=== PATIENT | female | born 1965 | race Caucasian/White ===

== ENCOUNTER → 2017-11-04 11:46 | Outpatient (CLI) | payer OTHER, SELFPAY ==
[2017-11-04 13:20] LABS: Alanine Aminotransferase 47 IU/L (9-52); Albumin Globulin Ratio 1.4 (1.0-2.8); Alkaline Phosphatase 56 U/L (38-126); Aspartate Aminotransferase 36 IU/L (14-36); BUN Creatinine Ratio 17.1 (6-22); Blood Urea Nitrogen 12 mg/dL (7-17); Calcium 9.7 mg/dL (8.4-10.2); Carbon Dioxide 31 mmol/L (22-32); Chloride 103 mmol/L (98-107); Estimated Glomerular Filt Rate > 60.0 mL/min (>60); Globulin 2.8 g/dL (1.7-4.1); Glucose 85 mg/dL (70-100); HEMOLYSIS < 15 (0-50); Potassium 4.4 mmol/L (3.4-5.1); Sodium 139 mmol/L (137-145); Total Protein 6.8 g/dL (6.3-8.2)
[2017-11-06 14:15] LABS: Lipoprofile NMR SEE SEPARATE REPORTS
== END ==
PROVIDERS: PCP Internal Medicine Rheumatology; Visit Provider Specialist
DX: R00.2 Palpitations (principal)
CPT/HCPCS: 36415; 80053; 83704

== ENCOUNTER → 2019-01-20 10:02 | Outpatient (CLI) | payer OTHER, SELFPAY ==
[2019-01-20 10:59] LABS: Alanine Aminotransferase 56 IU/L (9-52); Albumin 4.2 g/dL (3.5-5.0); Albumin Globulin Ratio 1.6 (1.0-2.8); Alkaline Phosphatase 62 U/L (38-126); Aspartate Aminotransferase 55 IU/L (14-36); Bilirubin Total 1.3 mg/dL (0.2-1.3); Blood Urea Nitrogen 14 mg/dL (7-17); Calcium 9.7 mg/dL (8.4-10.2); Carbon Dioxide 27 mmol/L (22-32); Chloride 103 mmol/L (98-107); Estimated Glomerular Filt Rate > 60.0 mL/min (>60); Globulin 2.7 g/dL (1.7-4.1); Glucose 84 mg/dL (70-100); HEMOLYSIS < 15 (0-50); Sodium 137 mmol/L (137-145); Total Protein 6.9 g/dL (6.3-8.2)
[2019-01-22 11:15] LABS: Lipoprofile NMR SEE SEPERATE REPORT
== END ==
PROVIDERS: PCP Family Medicine; Visit Provider Specialist
DX: E78.2 Mixed hyperlipidemia (principal)
CPT/HCPCS: 36415; 80053; 83704

== ENCOUNTER → 2019-02-03 08:09 | Outpatient (CLI) | payer OTHER, SELFPAY ==
--- NOTE | 2019-02-03 | DI.ECHO.S_ITS ---
[facility] +---------+ : : [address] : [address] : : : : [id number] : : : : Phone: [phone]+ Echocardiogram Report + + :Name: NICK KAUR Study Date: 02/03/2019 Height: 65 in : :[facility] Exam Location: [facility] Weight: 184 lb : : Gender: Female BSA: 1.9 m2 : :: 1965 Age: 53 yrs BP: 126/83 mmHg: :Reason For Study: CAD : :Ordering Physician: Wiley : :Alec Performed By: Margaret Page : :Referring: UNSPECIFIED : + + Interpretation Summary Left ventricular systolic function is normal without focal wall motion abnormalities with the ejection fraction visually estimated to be 55-60% but appears slightly less dynamic compared to the previous study. The left ventricle is borderline dilated but is likely unchanged compared to the previous study. Diastolic function could not be accurately assessed due to contradictory data but is likely unchanged compared to the previous study. The right ventricle is at the upper limits of normal in size and systolic function is mildly reduced, and appears slightly larger and less dynamic compared to the previous study. Pulmonary artery pressures cannot be estimated because of the lack of a measurable TR jet velocity but the IVC suggests a CVP of around 3 mmHg. Both atria are severely dilated and both atria have significantly increased in size since the prior echo exam. There is mild mitral regurgitation that is unchanged compared to the previous study. There is no other significant valvular heart disease. The patient was in sinus bradycardia between 40-56 bpm during the exam which is slower compared to the previous study. Procedure: A two-dimensional transthoracic echocardiogram with color flow and Doppler was performed. The study quality was technically adequate. Comparison is made with the echocardiogram of 10/31/2016. The patient was in sinus bradycardia with heart rates between 40-56 bpm during the exam. This is slower compared to the previous study. Left Ventricle: The left ventricle is borderline dilated. This is unchanged compared to the previous study. There is normal left ventricular wall thickness. Left ventricular systolic function is normal without focal wall motion abnormalities. The ejection fraction is estimated to be 55-60%. This is slightly less dynamic compared to the previous study. Diastolic function could not be accurately assessed due to contradictory data. This is unchanged compared to the previous study. Right Ventricle: The right ventricle is not well visualized. The right ventricle is at the upper limits of normal in size. Right ventricular systolic function is mildly reduced. This is slightly larger and less dynamic compared to the previous study. Atria: Both atria are severely dilated. Both atria have significantly increased in size since the prior echo exam. There is no Doppler evidence for an interatrial shunt. Mitral Valve: There is mild mitral annular calcification. The mitral valve leaflets appear mildly thickened, but open well. The mitral valve leaflets are slightly calcified. There is mild mitral regurgitation. This is unchanged compared to the previous study. Aortic Valve: The aortic valve is trileaflet. The aortic valve is slightly calcified. The aortic valve opens well. There is trace aortic regurgitation. Tricuspid Valve: The tricuspid valve is normal in structure and function. There is a trace or physiologic amount of tricuspid regurgitation. Pulmonary artery pressures cannot be estimated because of the lack of a measurable TR jet velocity but the IVC suggests a CVP of around 3 mmHg. Pulmonic Valve: The pulmonic valve is not well visualized. There is trace pulmonic regurgitation. There is no other significant valvular heart disease. Great Vessels: The aortic root is normal size. The ascending aorta is normal in size. The pulmonary artery is normal size. The IVC is of normal diameter and collapses greater than 50% with a sniff. This suggests a low right atrial pressure of 3 mm Hg. Pericardium/ Pleura There is no pericardial effusion. There is no pleural effusion. MMode/2D Measurements & Calculations LVIDd: 5.3 cm LVOT diam: 2.0 cm LVIDs: 2.9 cm Ao root diam: 3.2 cm FS: 44.4 % asc Aorta Diam: 3.0 cm EPSS: 0.37 cm IVSd: 0.64 cm LVPWd: 0.87 cm LV song. diameter/BSA (cm/m^2): 2.8 LV sys. diameter/BSA (cm/m^2): 1.5 LA A2 area: 23.3 cm2 RA long axis: 5.5 cm LA A4 area: 26.0 cm2 RA area: 23.4 cm2 LA length (vol): 5.6 cm RA vol: 84.6 ml LA vol: 91.8 ml RA : 44.3 ml/m2 LA vol index: 48.1 ml/m2 IVC diam: 1.9 cm TAPSE: 1.1 cm Doppler Measurements & Calculations Ao V2 max: 175.1 cm/sec LVOT Max Neto: 89.9 cm/sec Ao V2 mean: 120.4 cm/sec LV V1 max P.2 mmHg Ao max P.3 mmHg LV V1 VTI: 20.5 cm Ao mean P.4 mmHg ISABEL(I,D): 1.7 cm2 Ao V2 VTI: 38.7 cm ISABEL(V,D): 1.6 cm2 sev ratio: 0.53 ISABEL indexed to BSA (cm^2/m^2): 0.89 MV E max neto: 86.2 cm/sec PA V2 max: 61.4 cm/sec MV A max neto: 42.9 cm/sec PA V2 mean: 41.2 cm/sec MV E/A: 2.0 PA mean P.76 mmHg Med Peak E' Neto: 4.9 cm/sec PA Accel Time: 0.10 sec E/E' med: 17.6 Lat Peak E' Neto: 10.8 cm/sec E/E' lat: 8.0 E/e' average: 12.8 MV dec time: 0.16 sec MV P1/2t: 48.2 msec MV P1/2t max neto: 86.3 cm/sec SV(LVOT): 65.9 ml MVA(P1/2t): 4.6 cm2 Reading Physician:BETHEL
== END ==
PROVIDERS: Family Provider Family Medicine; PCP Family Medicine; Visit Provider Physician Assistant Medical
DX: I34.0 Nonrheumatic mitral (valve) insufficiency (principal); I25.10 Atherosclerotic heart disease of native coronary artery without angina pectoris
CPT/HCPCS: 93306

== ENCOUNTER → 2019-08-18 10:44 | Outpatient (CLI) | payer OTHER, SELFPAY ==
[2019-08-18 13:04] LABS: Alanine Aminotransferase 32 IU/L (<35); Albumin 4.1 g/dL (3.5-5.0); Albumin Globulin Ratio 1.4 (1.0-2.8); Alkaline Phosphatase 56 U/L (38-126); Aspartate Aminotransferase 37 IU/L (14-36); Bilirubin Total 0.6 mg/dL (0.2-1.3); Blood Urea Nitrogen 13 mg/dL (7-17); Calcium 9.3 mg/dL (8.4-10.2); Carbon Dioxide 28 mmol/L (22-32); Chloride 106 mmol/L (98-107); Estimated Glomerular Filt Rate > 60.0 mL/min (>60); Globulin 2.9 g/dL (1.7-4.1); Glucose 78 mg/dL (70-100); HEMOLYSIS < 15 (0-50); Potassium 4.4 mmol/L (3.4-5.1); Sodium 141 mmol/L (137-145)
[2019-08-20 08:19] LABS: Cholesterol, Total 182 mg/dL (100-199); HDL-Cholesterol 65 mg/dL (>39); HDL-Particle (Total) 37.2 umol/L (>=30.5); Historical Reading Comment: (.); LDL Particle 1040 nmol/L (<1000); LDL Size 21.2 nm (>20.5); LDL-Cholsterol 104 mg/dL (0-99); LP-IR Score 29 (<=45); Small LDL- Particle 345 nmol/L (<=527); Triglycerides 64 mg/dL (0-149)
== END ==
PROVIDERS: Family Provider Family Medicine; PCP Family Medicine; Referring Provider Specialist; Visit Provider Specialist
DX: R94.5 Abnormal results of liver function studies (principal); E78.2 Mixed hyperlipidemia
CPT/HCPCS: 36415; 80053; 80061; 83704

== ENCOUNTER → 2020-04-19 11:24 | Outpatient (CLI) | payer OTHER, SELFPAY ==
[2020-04-19 13:28] LABS: Alanine Aminotransferase 24 IU/L (<35); Albumin 3.9 g/dL (3.5-5.0); Albumin Globulin Ratio 1.5 (1.0-2.8); Alkaline Phosphatase 64 U/L (38-126); Aspartate Aminotransferase 32 IU/L (14-36); BUN Creatinine Ratio 24.7 (6-22); Bilirubin Total 0.8 mg/dL (0.2-1.3); Blood Urea Nitrogen 18 mg/dL (7-17); Calcium 9.3 mg/dL (8.4-10.2); Carbon Dioxide 29 mmol/L (22-32); Chloride 107 mmol/L (98-107); Estimated Glomerular Filt Rate > 60.0 mL/min (>60); Globulin 2.6 g/dL (1.7-4.1); Glucose 79 mg/dL (70-100); HEMOLYSIS < 15 (0-50); Sodium 139 mmol/L (137-145); Total Protein 6.5 g/dL (6.3-8.2)
[2020-04-25 15:32] LABS: LDL Particle 1817
[2020-04-25 15:33] LABS: HDL-Cholesterol 25.6; LDL-Cholsterol 140
[2020-04-25 15:34] LABS: Cholesterol, Total 207; Triglycerides 62
[2020-04-25 15:35] LABS: HDL-Particle (Total) 25.6; Small LDL- Particle 592
== END ==
PROVIDERS: Family Provider Family Medicine; PCP Family Medicine; Referring Provider Specialist; Visit Provider Specialist
DX: E78.2 Mixed hyperlipidemia (principal)
CPT/HCPCS: 36415; 80053; 80061; 83704

== ENCOUNTER → 2020-05-12 17:40 | Outpatient (CLI) | payer OTHER, SELFPAY | PROVIDERS: Family Provider Family Medicine; PCP Family Medicine; Referring Provider Family Medicine; Visit Provider Family Medicine | DX: M54.2 Cervicalgia (principal); Z53.20 Procedure and treatment not carried out because of patient's decision for unspecified reasons ==

== ENCOUNTER → 2020-05-25 12:45 | Outpatient (CLI) | payer OTHER, SELFPAY ==
--- NOTE | 2020-05-25 | DI.MRI.S_ITS ---
PROCEDURE: MR LUMBAR SPINE WO CON INDICATIONS: lumbar Nerve root and plexus disorder TECHNIQUE: Noncontrast sagittal T1 spin echo and T2 fast echo, sagittal STIR, axial T1 and T2 fast spin echo through the lumbar spine. In cases with scoliosis, additional coronal T2 fast spin echo may be performed. COMPARISON: None. FINDINGS: Image quality: Excellent. Alignment and Curvature: There is normal bony alignment. Bone Marrow: Increased T2 signal and decreased T1 signal noted in the right ala of the sacrum compatible with nondisplaced fracture. Mild reactive endplate changes noted adjacent to the L3-L4 disc. No acute vertebral body compression fractures. Spinal Cord: Conus medullaris terminates at the L1 level. Visualized cord demonstrates normal signal and size. Paraspinous Soft Tissues: No paravertebral masses. T12-L1: Loss of disc signal. No central stenosis. No neural foraminal narrowing. No neural compression. L1-L2: Loss of disc signal. Mild, diffuse disc bulge. Mild narrowing of the central canal. No neural foraminal narrowing. No neural compression. L2-L3: Normal appearance. L3-L4: Loss of disc signal and height. Moderate, diffuse disc bulge. Mild bilateral facet hypertrophy. Mild to moderate narrowing of the central canal. Moderate right and moderate to severe left neural foraminal narrowing with slight compression of the exiting left L3 nerve root. L4-L5: Loss of disc signal. Mild, diffuse disc bulge. [id number] bilateral facet hypertrophy. Mild ligamentum flavum hypertrophy. Mild to moderate narrowing of the central canal. Mild to moderate bilateral neural foraminal narrowing. No neural compression. L5-S1: Disc has a normal appearance. Mild to moderate bilateral facet hypertrophy. No central stenosis. No neural foraminal narrowing. No neural compression. IMPRESSION: 1. Right sacral fracture. 2. Multilevel degenerative disc disease. 3. Multilevel facet arthropathy. 4. No severe central canal narrowing. 5. Moderate to severe left L3-L4 neural foraminal narrowing with slight compression of the exiting left L3 nerve root. Please correlate with clinical data. Dictated by: Ruth Gallegos MD, PhD on 05/25/2020 at 17:07 Approved by: Ruth Gallegos MD, PhD on 05/25/2020 at 17:13
--- NOTE | 2020-05-25 | DI.MRI.S_ITS ---
PROCEDURE: MR CERVICAL SPINE WO CON INDICATIONS: Cervicalgia Nerve root and plexus disorder TECHNIQUE: Noncontrast sagittal T1 spin echo and T2 fast spin echo, sagittal STIR, foraminal oblique sagittal T2 fast spin echo, and axial gradient echo or T2 fast spin echo through the cervical spine. COMPARISON: None. FINDINGS: Image quality: Excellent. Alignment and Curvature: There is trace retrolisthesis of C5 on C6, C6 on C7. Bone Marrow: Marrow demonstrates normal overall signal. Spinal Cord: Visualized spinal cord has normal size and signal. No cerebellar tonsillar herniation. Paraspinous Soft Tissues: No paravertebral masses. Prevertebral soft tissues are normal in thickness. Discs: [id number] desiccation is present throughout the cervical spine. C2-C3: No disc bulge, spinal stenosis or foraminal narrowing. C3-C4: Minimal disc bulge with mild left and minimal right foraminal narrowing and uncovertebral hypertrophy. C4-C5: Mild disc bulge with mild spinal stenosis. Minimal to mild bilateral foraminal narrowing with uncovertebral hypertrophy. C5-C6: Mild disc bulge with asymmetric left posterior lateral protrusion causing compromise of the left lateral recess. Moderate spinal stenosis. Moderate bilateral foraminal narrowing with uncovertebral hypertrophy. C6-C7: Mild disc bulge with moderate spinal stenosis. Moderate bilateral foraminal narrowing, left greater than right with uncovertebral hypertrophy. C7-T1: No disc bulge, spinal stenosis or foraminal narrowing. IMPRESSION: 1. Multilevel disc bulges. 2. Multilevel spinal stenosis predominantly secondary to disc bulge and most notable at C5-6 and C6-7. 3. Multilevel foraminal narrowing secondary to uncovertebral arthropathy as above most notable at C5-6 and C6-7. Dictated by: Brandie Corbin M.D. on 05/25/2020 at 16:56 Approved by: Brandie Corbin M.D. on 05/25/2020 at 17:00
== END ==
PROVIDERS: Family Provider Family Medicine; PCP Family Medicine; Referring Provider Family Medicine; Visit Provider Family Medicine
DX: M48.02 Spinal stenosis, cervical region (principal); M50.221 Other cervical disc displacement at C4-C5 level
CPT/HCPCS: 72141; 72148

== ENCOUNTER → 2020-08-03 13:55 | Outpatient (CLI) | payer OTHER, SELFPAY | PROVIDERS: Family Provider Family Medicine; PCP Family Medicine; Referring Provider Physical Medicine & Rehabilitation; Visit Provider Physical Medicine & Rehabilitation | DX: M84.48XA Pathological fracture, other site, initial encounter for fracture (principal) | CPT/HCPCS: 77080 ==

== ENCOUNTER → 2020-08-30 11:13 | Outpatient (CLI) | payer OTHER, SELFPAY ==
[2020-08-30 12:24] LABS: Alanine Aminotransferase 29 IU/L (<35); Albumin 4.1 g/dL (3.5-5.0); Albumin Globulin Ratio 1.4 (1.0-2.8); Alkaline Phosphatase 62 U/L (38-126); Aspartate Aminotransferase 37 IU/L (14-36); BUN Creatinine Ratio 20.9 (6-22); Bilirubin Total 0.8 mg/dL (0.2-1.3); Blood Urea Nitrogen 14 mg/dL (7-17); Calcium 9.5 mg/dL (8.4-10.2); Carbon Dioxide 30 mmol/L (22-32); Chloride 106 mmol/L (98-107); Estimated Glomerular Filt Rate > 60.0 mL/min (>60); Glucose 93 mg/dL (70-100); HEMOLYSIS 36 (0-50); Potassium 4.7 mmol/L (3.4-5.1); Sodium 141 mmol/L (137-145); Total Protein 7.1 g/dL (6.3-8.2)
== END ==
PROVIDERS: Family Provider Family Medicine; PCP Family Medicine; Referring Provider Specialist; Visit Provider Specialist
DX: E78.2 Mixed hyperlipidemia (principal)
CPT/HCPCS: 36415; 80053

== ENCOUNTER → 2020-09-06 12:15 | Outpatient (CLI) | payer OTHER, SELFPAY ==
--- NOTE | 2020-09-06 | DI.US.S_ITS ---
PROCEDURE: US CAROTID DOPPLER BI INDICATIONS: Occlusion and stenosis of unspecified carotid dominick TECHNIQUE: Color and pulse Doppler interrogation was performed of both carotid systems, with image documentation and velocity measurements. COMPARISON: None. FINDINGS: Stenosis calculations are based on SRU (Society of Radiologists in Ultrasound) criteria. Right side: Brachial blood pressure: 102/60 mm Hg. Common carotid artery peak systolic velocity: 74 cm/sec. Internal carotid artery peak systolic velocity: 138 cm/sec. Internal carotid artery end diastolic velocity: 57 cm/sec. External carotid artery peak systolic velocity: 113 cm/sec. ICA/CCA peak systolic ratio: 1.9 . Nguyen scale imaging description: Focal calcified stenosis of the mid common carotid, potentially as much as 50%. Non flow limiting internal carotid artery stenosis. Percent internal carotid artery stenosis: 50-69% by velocity criteria Vertebral artery: Flow direction is antegrade. Left side: Brachial blood pressure: 98/68 mm Hg. Common carotid artery peak systolic velocity: 74 cm/sec. Internal carotid artery peak systolic velocity: 177 cm/sec. Internal carotid artery end diastolic velocity: 52 cm/sec. External carotid artery peak systolic velocity: 112 cm/sec. ICA/CCA peak systolic ratio: 2.4. Nguyen scale imaging description: Scattered common carotid plaque. Calcified carotid bulb plaque. Moderate internal carotid artery plaque. External carotid artery stenosis. Percent internal carotid artery stenosis: 50-69% proximal internal carotid artery stenosis. Vertebral artery: Flow direction is antegrade. IMPRESSION: 1. Bilateral moderate, 50-69% internal carotid artery stenoses. Dictated by: Hugh Saavedra M.D. on 09/06/2020 at 15:03 Approved by: Hugh Saavedra M.D. on 09/06/2020 at 15:09
--- NOTE | 2020-09-06 | DI.US.S_ITS ---
PROCEDURE: US ABD AORTA ANEURYSM SCREEN INDICATIONS: Occlusion and stenosis of unspecified carotid dominick TECHNIQUE: Real time scanning was performed of the aorta and iliac arteries, with image documentation. COMPARISON: None. FINDINGS: Aorta: Proximal aortic diameter measures 1.7 cm. Mid-aorta measures 1.8 cm. Distal aortic diameter is 1.5 cm. Iliac arteries: Right common iliac artery measures 0.7 cm. Left common iliac artery measures 0.8 cm. IMPRESSION: Negative screening abdominal aortic ultrasound for aneurysm. Dictated by: Hugh Saavedra M.D. on 09/06/2020 at 15:09 Approved by: Hugh Saavedra M.D. on 09/06/2020 at 15:10
== END ==
PROVIDERS: Family Provider Family Medicine; PCP Family Medicine; Referring Provider Physician Assistant Medical; Visit Provider Physician Assistant Medical
DX: I65.23 Occlusion and stenosis of bilateral carotid arteries (principal)
CPT/HCPCS: 76706; 93880

== ENCOUNTER → 2020-09-13 12:12 | Outpatient (CLI) | payer OTHER, SELFPAY ==
[2020-09-13 14:10] LABS: Alanine Aminotransferase 26 IU/L (<35); Albumin Globulin Ratio 1.4 (1.0-2.8); Alkaline Phosphatase 66 U/L (38-126); Aspartate Aminotransferase 32 IU/L (14-36); BUN Creatinine Ratio 18.3 (6-22); Bilirubin Total 0.9 mg/dL (0.2-1.3); Blood Urea Nitrogen 13 mg/dL (7-17); Calcium 9.7 mg/dL (8.4-10.2); Carbon Dioxide 29 mmol/L (22-32); Chloride 102 mmol/L (98-107); Estimated Glomerular Filt Rate > 60.0 mL/min (>60); Globulin 2.8 g/dL (1.7-4.1); Glucose 77 mg/dL (70-100); HEMOLYSIS < 15 (0-50); Sodium 137 mmol/L (137-145); Total Protein 6.8 g/dL (6.3-8.2)
[2020-09-15 08:47] LABS: Cholesterol, Total 182 mg/dL (100-199); HDL-Cholesterol 67 mg/dL (>39); HDL-Particle (Total) 36.1 umol/L (>=30.5); LDL Particle 1301 nmol/L (<1000); LDL Size 20.8 nm (>20.5); LDL-Cholsterol 103 mg/dL (0-99); LP-IR Score <25 (<=45); Small LDL- Particle 632 nmol/L (<=527); Triglycerides 66 mg/dL (0-149)
== END ==
PROVIDERS: Family Provider Family Medicine; PCP Family Medicine; Referring Provider Specialist; Visit Provider Specialist
DX: E78.00 Pure hypercholesterolemia, unspecified (principal); R94.5 Abnormal results of liver function studies
CPT/HCPCS: 36415; 80053; 80061; 83704

== ENCOUNTER → 2020-10-20 10:36 | Outpatient (CLI) | payer OTHER, SELFPAY ==
--- NOTE | 2020-10-20 | DI.MG.S_ITS ---
BILATERAL DIGITAL SCREENING MAMMOGRAM 3D/2D WITH CAD: 10/20/2020 CLINICAL: Routine screening. Comparison is made to exam dated: 08/10/2015 mammogram - [facility]. There are scattered fibroglandular elements in both breasts. Current study was also evaluated with a Computer Aided Detection (CAD) system. No significant masses, calcifications, or other findings are seen in either breast. There has been no significant interval change. IMPRESSION: NEGATIVE There is no mammographic evidence of malignancy. A 1 year screening mammogram is recommended. This exam was interpreted at Station ID: [id number]. NOTE: For mammograms, a report in lay terms will be sent to the patient. Approximately 15% of breast malignancies will not be visualized mammographically. In the management of a palpable breast mass, a negative mammogram must not discourage biopsy of a clinically suspicious lesion. Electronically Signed By: Chris Mcmahon M.D., jr/malik:10/20/2020 11:00:54 letter sent: Normal Exam ACR BI-RADS Category 1: Negative [id number]
== END ==
PROVIDERS: Family Provider Family Medicine; PCP Family Medicine; Referring Provider Family Medicine; Visit Provider Family Medicine
DX: Z12.31 Encounter for screening mammogram for malignant neoplasm of breast (principal)
CPT/HCPCS: 77063; 77067

== ENCOUNTER → 2021-01-05 10:57 | Outpatient (CLI) | payer OTHER, SELFPAY ==
[2021-01-05 12:47] LABS: Alanine Aminotransferase 25 IU/L (<35); Albumin 4.1 g/dL (3.5-5.0); Albumin Globulin Ratio 1.6 (1.0-2.8); Alkaline Phosphatase 61 U/L (38-126); Aspartate Aminotransferase 30 IU/L (14-36); Bilirubin Total 0.8 mg/dL (0.2-1.3); Blood Urea Nitrogen 14 mg/dL (7-17); Calcium 9.6 mg/dL (8.4-10.2); Carbon Dioxide 31 mmol/L (22-32); Chloride 106 mmol/L (98-107); Estimated Glomerular Filt Rate > 60.0 mL/min (>60); Globulin 2.5 g/dL (1.7-4.1); Glucose 82 mg/dL (70-100); HEMOLYSIS < 15 (0-50); Potassium 4.3 mmol/L (3.4-5.1); Sodium 141 mmol/L (137-145); Total Protein 6.6 g/dL (6.3-8.2)
[2021-01-07 15:05] LABS: Cholesterol, Total 246 mg/dL (100-199); HDL-Cholesterol 69 mg/dL (>39); HDL-Particle (Total) 33.4 umol/L (>=30.5); LDL Particle 1855 nmol/L (<1000); LDL Size 21.2 nm (>20.5); LDL-Cholsterol 168 mg/dL (0-99); LP-IR Score <25 (<=45); Small LDL- Particle 509 nmol/L (<=527); Triglycerides 54 mg/dL (0-149)
== END ==
PROVIDERS: Family Provider Family Medicine; PCP Family Medicine; Referring Provider Specialist; Visit Provider Specialist
DX: E78.00 Pure hypercholesterolemia, unspecified (principal); R94.5 Abnormal results of liver function studies
CPT/HCPCS: 36415; 80053; 80061; 83704

== ENCOUNTER → 2021-08-11 10:51 | Outpatient (CLI) | payer OTHER, SELFPAY ==
--- NOTE | 2021-08-11 10:54 | DI.US.S_ITS ---
PROCEDURE: US CAROTID DOPPLER BI INDICATIONS: Occlusion -stenosis of bilateral carotid artery TECHNIQUE: Color and pulse Doppler interrogation was performed of both carotid systems, with image documentation and velocity measurements. COMPARISON: [facility], , CAROTID DOPPLER BI, 09/06/2020, 11:30. FINDINGS: Stenosis calculations are based on SRU (Society of Radiologists in Ultrasound) criteria. Right side: Brachial blood pressure: 144/96 mm Hg. Common carotid artery peak systolic velocity: 114 cm/sec. Internal carotid artery peak systolic velocity: 127 cm/sec. Internal carotid artery end diastolic velocity: 48 cm/sec. External carotid artery peak systolic velocity: 123 cm/sec. ICA/CCA peak systolic ratio: 1.1 . Nguyen scale imaging description: Calcified plaque Percent internal carotid artery stenosis: 50-69% Vertebral artery: Flow direction is antegrade. Left side: Brachial blood pressure: 134/86 mm Hg. Common carotid artery peak systolic velocity: 100 cm/sec. Internal carotid artery peak systolic velocity: 197 cm/sec. Internal carotid artery end diastolic velocity: 55 cm/sec. External carotid artery peak systolic velocity: 339 cm/sec. ICA/CCA peak systolic ratio: 1.97 . Nguyen scale imaging description: Calcified plaque Percent internal carotid artery stenosis: 50-69%. Vertebral artery: Flow direction is antegrade. IMPRESSION: Moderate 50-69% bilateral internal carotid artery stenosis. Dictated by: Ruth Gallegos MD, PhD on 08/11/2021 at 14:32 Approved by: Ruth Gallegos MD, PhD on 08/11/2021 at 14:37
== END ==
PROVIDERS: Family Provider Family Medicine; PCP Family Medicine; Referring Provider Specialist; Visit Provider Physician Assistant Medical
DX: I65.23 Occlusion and stenosis of bilateral carotid arteries (principal)
CPT/HCPCS: 93880

== ENCOUNTER → 2021-11-21 08:46 | Outpatient (CLI) | payer OTHER, SELFPAY ==
[2021-11-21 09:45] LABS: Alanine Aminotransferase 27 IU/L (<35); Albumin 4.1 g/dL (3.5-5.0); Albumin Globulin Ratio 1.5 (1.0-2.8); Alkaline Phosphatase 65 U/L (38-126); Aspartate Aminotransferase 29 IU/L (14-36); Bilirubin Total 0.7 mg/dL (0.2-1.3); Blood Urea Nitrogen 14 mg/dL (7-17); Calcium 8.7 mg/dL (8.4-10.2); Carbon Dioxide 26 mmol/L (22-32); Chloride 108 mmol/L (98-107); Estimated Glomerular Filt Rate > 60 mL/min (>60); Globulin 2.8 g/dL (1.7-4.1); Glucose 97 mg/dL (70-100); HEMOLYSIS < 15 (0-50); Potassium 3.7 mmol/L (3.4-5.1); Sodium 139 mmol/L (137-145); Total Protein 6.9 g/dL (6.3-8.2)
[2021-11-24 09:15] LABS: Cholesterol, Total 103 mg/dL (100-199); HDL-Cholesterol 59 mg/dL (>39); HDL-Particle (Total) 38.9 umol/L (>=30.5); LDL Particle 419 nmol/L (<1000); LDL Size 19.7 nm (>20.5); LDL-Cholsterol 32 mg/dL (0-99); LP-IR Score 26 (<=45); Small LDL- Particle 276 nmol/L (<=527); Triglycerides 51 mg/dL (0-149)
== END ==
PROVIDERS: Family Provider Family Medicine; PCP Family Medicine; Referring Provider Specialist; Visit Provider Specialist
DX: E78.00 Pure hypercholesterolemia, unspecified (principal); R94.5 Abnormal results of liver function studies
CPT/HCPCS: 36415; 80053; 80061; 83704

== ENCOUNTER → 2022-09-27 13:00 | Outpatient (CLI) | payer OTHER, SELFPAY ==
[2022-09-27 13:45] LABS: Alanine Aminotransferase 25 IU/L (<35); Albumin 4.1 g/dL (3.5-5.0); Albumin Globulin Ratio 1.5 (1.0-2.8); Alkaline Phosphatase 74 U/L (38-126); Aspartate Aminotransferase 29 IU/L (14-36); BUN Creatinine Ratio 12.5 (6-22); Bilirubin Total 0.6 mg/dL (0.2-1.3); Blood Urea Nitrogen 9 mg/dL (7-17); Calcium 9.1 mg/dL (8.4-10.2); Carbon Dioxide 30 mmol/L (22-32); Chloride 105 mmol/L (98-107); Estimated Glomerular Filt Rate > 60 mL/min (>60); Globulin 2.7 g/dL (1.7-4.1); Glucose 91 mg/dL (70-100); HEMOLYSIS < 15 (0-50); Potassium 4.1 mmol/L (3.4-5.1); Sodium 140 mmol/L (137-145); Total Protein 6.8 g/dL (6.3-8.2)
[2022-10-01 11:52] LABS: Cholesterol, Total 170 mg/dL (100-199); HDL-Cholesterol 69 mg/dL (>39); HDL-Particle (Total) 39.1 umol/L (>=30.5); LDL Particle 926 nmol/L (<1000); LDL Size 21.8 nm (>20.5); LDL-Cholsterol 88 mg/dL (0-99); LP-IR Score <25 (<=45); Small LDL- Particle 154 nmol/L (<=527); Triglycerides 65 mg/dL (0-149)
== END ==
PROVIDERS: Family Provider Family Medicine; PCP Family Medicine; Referring Provider Specialist; Visit Provider Specialist
DX: E78.2 Mixed hyperlipidemia (principal)
CPT/HCPCS: 36415; 80053; 80061; 83704

== ENCOUNTER 2022-10-03 06:09 | Emergency (ER) | payer OTHER, SELFPAY ==
--- NOTE | 2022-10-03 06:12 | ED.GENADULT ---
HPI - General Adult <Cecilio Null DO - Last Filed: 10/04/22 01:35> General Chief complaint: Back Pain/Injury Stated complaint: abd pain lt side and back pain Time Seen by Provider: 10/03/22 06:12 History of Present Illness HPI narrative: 57-year-old female with a history of kidney stone (20 years ago) presents with her in the chief complaint of a sudden onset left flank pain with radiation into her groin that came on suddenly and woke her from sleep last night. She states that when it was intense the pain was quite severe and she was unable to find a position of comfort. There was no obvious provocation or palliation but she does admit to radiation to her back. Since then the intense pain has improved but she has a lingering left lower quadrant discomfort that persists. She states that in many ways this feels like prior kidney stones. She denies any dizziness, weakness or lightheadedness. She has no fever or chills and though she has been nauseated she denies any vomiting. She has had relatively frequent loose stools for the past few weeks but denies international travel, bad food, and use of antibiotics or exposure to other ill persons. Related Data Previous Rx's Medication Instructions Recorded hydrocodone 5 mg-acetaminophen 325 1 tab PO Q6H PRN pain #10 tabs 10/03/22 mg tablet ondansetron 4 mg disintegrating 4 mg PO Q6H PRN nausea and 10/03/22 tablet vomiting #10 tabs tamsulosin 0.4 mg capsule (Flomax) 0.4 mg PO DAILY #14 caps 10/03/22 Allergies Allergy/AdvReac Type Severity Reaction Status Date / Time Sulfa (Sulfonamide Allergy Hives Verified 10/03/22 06:19 Antibiotics) Review of Systems <Cecilio Null DO - Last Filed: 10/04/22 01:35> Review of Systems Narrative: GENERAL: Denies chills, fatigue, malaise, fever, sweats. HEENT: Denies sinus pain, ear pain, sore throat, difficulty swallowing, dizziness. RESPIRATORY: Denies dyspnea, cough, wheezing, hemoptysis, sputum. CARDIOVASCULAR: Denies chest pain, palpitations, orthopnea, edema, GASTROINTESTINAL: See HPI : See HPI MUSCULOSKELETAL: denies weakness, joint pain, or bony pain SKIN: Denies rash, skin lesions, or other NEUROLOGIC: Denies weakness, headache, numbness, change in speech, confusion, seizures, incoordination. PSYCHIATRIC: No concerning psychosocial issues. 12 point review of systems is negative except for those stated above Patient History <Cecilio Null DO - Last Filed: 10/04/22 01:35> Social History Smoking Status: Never smoker Exam <Cecilio Null DO - Last Filed: 10/04/22 01:35> Narrative Exam Narrative: GENERAL: [57] year old patient appears stated age. Well-developed patient, in mild distress. HEAD: Atraumatic. Normocephalic. EYES: Pupils equal round and reactive. Extraocular motions intact. No scleral icterus. No injection or drainage. ENT: Nose without bleeding, purulent drainage. Throat without erythema, tonsillar hypertrophy or exudate. Airway patent. NECK: Trachea midline. Non tender CARDIOVASCULAR: Regular rate and rhythm without murmurs, gallops, or rubs. RESPIRATORY: Clear to auscultation. Breath sounds equal bilaterally. No wheezes, rales, or rhonchi. GASTROINTESTINAL: Abdomen soft, non-tender, nondistended. EXTREMITIES: No edema or joint tenderness. BACK: Nontender without deformity or crepitance. No flank tenderness. NEURO: AOx3. SKIN: No rash or erythema of visible areas Initial Vital Signs Initial Vital Signs: Vital Signs Temperature 97.9 F 10/03/22 06:19 Pulse Rate 73 10/03/22 06:19 Respiratory Rate 15 10/03/22 06:19 Blood Pressure 129/91 H 10/03/22 06:19 Pulse Oximetry 95 10/03/22 06:19 Oxygen Delivery Method Room Air 10/03/22 06:19 <Cleveland Robertson DO - Last Filed: 10/03/22 08:40> Initial Vital Signs Initial Vital Signs: Vital Signs Temperature 97.9 F 10/03/22 06:19 Pulse Rate 73 10/03/22 06:19 Respiratory Rate 15 10/03/22 06:19 Blood Pressure 129/91 H 10/03/22 06:19 Pulse Oximetry 95 10/03/22 06:19 Oxygen Delivery Method Room Air 10/03/22 06:19 Course <Cecilio Lima, DO - Last Filed: 10/04/22 01:35> Orders Ordered: Discontinued Medications Sodium Chloride (Normal Saline 0.9%) 1,000 mls @ 1,000 mls/hr IV BOLUS ONE Stop: 10/03/22 07:24 Last Infusion: 10/03/22 08:12 Dose: 0 mls/hr Documented By: Admin: 10/03/22 06:41 Dose: 1,000 mls/hr Documented By: SJ Ketorolac Tromethamine (Ketorolac 30 Mg/Ml Vial) 15 mg IV NOW ONE Stop: 10/03/22 06:26 Last Admin: 10/03/22 07:19 Dose: 15 mg Documented By: RB Vital Signs Vital signs: Vital Signs - 8 hr 10/03/22 06:19 Temperature 97.9 F Pulse Rate 73 Respiratory Rate 15 Blood Pressure 129/91 H Pulse Oximetry 95 Oxygen Delivery Method Room Air <Cleveland Robertson DO - Last Filed: 10/03/22 08:40> Orders Ordered: Discontinued Medications Sodium Chloride (Normal Saline 0.9%) 1,000 mls @ 1,000 mls/hr IV BOLUS ONE Stop: 10/03/22 07:24 Last Infusion: 10/03/22 08:12 Dose: 0 mls/hr Documented By: Admin: 10/03/22 06:41 Dose: 1,000 mls/hr Documented By: SJ Ketorolac Tromethamine (Ketorolac 30 Mg/Ml Vial) 15 mg IV NOW ONE Stop: 10/03/22 06:26 Last Admin: 10/03/22 07:19 Dose: 15 mg Documented By: RB Vital Signs Vital signs: Vital Signs - 8 hr 10/03/22 06:19 Temperature 97.9 F Pulse Rate 73 Respiratory Rate 15 Blood Pressure 129/91 H Pulse Oximetry 95 Oxygen Delivery Method Room Air Medical Decision Making <Cecilio Null DO - Last Filed: 10/04/22 01:35> Lab Data 10/03/22 06:35 10/03/22 06:35 Labs: Lab Results 10/03/22 10/03/22 Range/Units 06:35 06:35 WBC 8.9 (4.5-11.0) X10^3/uL RBC 4.35 (4.0-5.2) X10^6/uL Hgb 14.7 (12.0-16.0) g/dL Hct 43.6 (36-46) % MCV 100.2 H (80-100) fL MCH 33.7 (26-34) PG MCHC 33.7 (30-36) % RDW 13.0 (11.6-14.8) % Plt Count 206 (150-400) X10^3/uL Neut % (Auto) 54.2 (50-75) % Lymph % (Auto) 31.5 (25-40) % [place] % (Auto) 8.3 (3-14) % Eos % (Auto) 4.9 H (2-4) % Baso % (Auto) 1.1 (0-2) % Neut # (Auto) 4800 (7586-2671) /uL Lymph # (Auto) 2800 (8928-0803) /uL [place] # (Auto) 700 (0-900) /uL Eos # (Auto) 400 (0-450) /uL Baso # (Auto) 100 (0-100) /uL Sodium 138 (137-145) mmol/L Potassium 3.8 (3.4-5.1) mmol/L Chloride 106 (98-107) mmol/L Carbon Dioxide 23 (22-32) mmol/L BUN 16 (7-17) mg/dL Creatinine 0.67 (0.52-1.04) mg/dL Estimated GFR > 60 (>60) mL/min BUN/Creatinine Ratio 23.9 H (6-22) Glucose 107 H (70-100) mg/dL Calcium 8.8 (8.4-10.2) mg/dL Urine Dip Bedside Urine Glucose Negative Bedside Urine Bilirubin - Negative Bedside Urine Ketone - Negative Urine Specific [place] 1.01 Bedside Urine Occult Blood +++ Bedside Urine pH 7 Bedside Urine Protein - Negative Bedside Urine Urobilinogen - Negative Bedside Urine Nitrite - Negative Bedside Urine Leukocytes - Negative Esterase Point of care testing: Urine Dip Bedside Urine Glucose Negative Bedside Urine Bilirubin - Negative Bedside Urine Ketone - Negative Urine Specific [place] 1.01 Bedside Urine Occult Blood +++ Bedside Urine pH 7 Bedside Urine Protein - Negative Bedside Urine Urobilinogen - Negative Bedside Urine Nitrite - Negative Bedside Urine Leukocytes - Negative Esterase <Cleveland Robertson DO - Last Filed: 10/03/22 08:40> Lab Data Lab results reviewed: Yes I reviewed the patient's lab results. Labs: Lab Results 10/03/22 10/03/22 Range/Units 06:35 06:35 WBC 8.9 (4.5-11.0) X10^3/uL RBC 4.35 (4.0-5.2) X10^6/uL Hgb 14.7 (12.0-16.0) g/dL Hct 43.6 (36-46) % MCV 100.2 H (80-100) fL MCH 33.7 (26-34) PG MCHC 33.7 (30-36) % RDW 13.0 (11.6-14.8) % Plt Count 206 (150-400) X10^3/uL Neut % (Auto) 54.2 (50-75) % Lymph % (Auto) 31.5 (25-40) % [place] % (Auto) 8.3 (3-14) % Eos % (Auto) 4.9 H (2-4) % Baso % (Auto) 1.1 (0-2) % Neut # (Auto) 4800 (6472-8848) /uL Lymph # (Auto) 2800 (8980-0129) /uL [place] # (Auto) 700 (0-900) /uL Eos # (Auto) 400 (0-450) /uL Baso # (Auto) 100 (0-100) /uL Sodium 138 (137-145) mmol/L Potassium 3.8 (3.4-5.1) mmol/L Chloride 106 (98-107) mmol/L Carbon Dioxide 23 (22-32) mmol/L BUN 16 (7-17) mg/dL Creatinine 0.67 (0.52-1.04) mg/dL Estimated GFR > 60 (>60) mL/min BUN/Creatinine Ratio 23.9 H (6-22) Glucose 107 H (70-100) mg/dL Calcium 8.8 (8.4-10.2) mg/dL Urine Dip Bedside Urine Glucose Negative Bedside Urine Bilirubin - Negative Bedside Urine Ketone - Negative Urine Specific [place] 1.01 Bedside Urine Occult Blood +++ Bedside Urine pH 7 Bedside Urine Protein - Negative Bedside Urine Urobilinogen - Negative Bedside Urine Nitrite - Negative Bedside Urine Leukocytes - Negative Esterase Point of care testing: Urine Dip Bedside Urine Glucose Negative Bedside Urine Bilirubin - Negative Bedside Urine Ketone - Negative Urine Specific [place] 1.01 Bedside Urine Occult Blood +++ Bedside Urine pH 7 Bedside Urine Protein - Negative Bedside Urine Urobilinogen - Negative Bedside Urine Nitrite - Negative Bedside Urine Leukocytes - Negative Esterase Imaging Data CT scan - abdomen/pelvis: Radiologist's Impression: PROCEDURE:? CT KIDNEY URETER BLADDER (KUB) ? INDICATIONS:? Left flank pain, hx stones ? TECHNIQUE:? Axial sections were acquired from the lung bases to the pubic symphysis.? Coronal and sagittal reformats were performed.? For radiation dose reduction, the following was used: ?automated exposure control, adjustment of mA and/or kV according to patient size.? ? COMPARISON:? None. ? FINDINGS:? Image quality:? Excellent.? ? Lung bases:? Unremarkable.? ? Heart:? Sternotomy wires and mediastinal clips are present.? Coronary artery calcifications are noted. ? URINARY: Kidneys and ureters:? Multiple due 3 mm nonobstructing calculi are seen in the left kidney.? A 5 mm calculus is seen in the distal left ureter (500 Hounsfield units) with mild left hydroureter and mild hydronephrosis.? No significant right hydronephrosis or ureteral calculus.? No solid renal mass. ? Bladder:? Normal wall thickness. No stones. ? ? ? ABDOMEN: Liver:? Subcentimeter hypoattenuating lesion at the inferior right hepatic lobe is too small to characterize, but is most likely a cyst or hemangioma..? ? Gallbladder:? Unremarkable. Biliary ducts:? Unremarkable.? ? Pancreas:? Unremarkable.? ? Spleen:? Spleen is surgically absent.? Surgical clips are seen in the left upper quadrant..? ? Adrenal Glands:? Unremarkable.? ? ? Stomach and Bowel:? Multiple diverticula are seen in the colon without signs of acute diverticulitis.? Prominent stool is seen in the cecum.? Normal appendix.? No signs of bowel obstruction. Peritoneum:? No abnormal intraperitoneal fluid.? No free air.? ? Ventral Wall: ? No hernia.? Abdominal Nodes:? No enlarged retroperitoneal or mesenteric lymph nodes.? Vessels:? Aorta and inferior vena cava are normal in size.? Mild to moderate aortic atherosclerotic calcifications. ? PELVIS: Pelvic Organs:? Unremarkable.? ? Pelvic Nodes: Unremarkable. Miscellaneous: No inguinal hernias are seen. ? ? ? Bones:? Mild degenerative changes in the lumbar spine. ? IMPRESSION:? 1. Left distal ureteral 5 mm calculus just proximal to the ureterovesicular junction.? Mild left hydroureteronephrosis. 2. Multiple additional nonobstructing left renal calculi. 3. Colonic diverticulosis without signs of acute diverticulitis.? [facility] Narrative Medical decision making narrative: Dr Robertson: Received turned over. Review patient's history and physical exam. Urinalysis does not show any signs of an infection. Kidney functions unremarkable. CT scan does show left-sided ureteral stone which is consistent with her clinical presentation. I did discuss this with her and her family at bedside. We will treat symptoms and also start on Flomax. Patient was given return precautions and follow-up instructions. She expressed understanding and agreement with plan. Discharge Plan Departure Patient Disposition: Home Clinical Impression: Renal colic on left side Instructions: DI for Kidney Stones Prescriptions: New ondansetron 4 mg tablet,disintegrating 4 mg PO Q6H PRN (Reason: nausea and vomiting) Qty: 10 0RF hydrocodone-acetaminophen 5-325 mg tablet 1 tab PO Q6H PRN (Reason: pain) Qty: 10 0RF tamsulosin [Flomax] 0.4 mg capsule 0.4 mg PO DAILY Qty: 14 0RF Referrals: Lesly Washington DO [Primary Care Provider] - Stand Alone Forms: Patient Portal/API
[2022-10-03 06:19] VITALS: BP 129/91; PULSE 73; RESP 15; TEMP 36.6; O2SAT 95; BMI 29.9
[2022-10-03] MEDS: SODIUM CHLORIDE 0.9% 1,000 ML 1000 ML IV (06:41)
[2022-10-03 06:45] LABS: Add Manual Diff / Slide Review NO; Basophils Absolute Auto 100 /uL (0-100); Basophils Percent Auto 1.1 % (0-2); Eosinophils Absolute Auto 400 /uL (0-450); Eosinophils Percent Auto 4.9 % (2-4); Hematocrit 43.6 % (36-46); Hemoglobin 14.7 g/dL (12.0-16.0); Lymphocytes Absolute Auto 2800 /uL (1100-4500); Lymphocytes Percent Auto 31.5 % (25-40); Mean Corpuscular HGB Conc 33.7 % (30-36); Mean Corpuscular Hemoglobin 33.7 PG (26-34); Mean Corpuscular Volume 100.2 fL (80-100); Monocytes Absolute Auto 700 /uL (0-900); Monocytes Percent Auto 8.3 % (3-14); Neutrophils Absolute Auto 4800 /uL (1500-7000); Neutrophils Percent Auto 54.2 % (50-75); Platelet Count 206 X10^3/uL (150-400); Red Blood Cell Count 4.35 X10^6/uL (4.0-5.2); White Blood Cell Count 8.9 X10^3/uL (4.5-11.0)
--- NOTE | 2022-10-03 07:13 | DI.CT.S_ITS ---
PROCEDURE: CT KIDNEY URETER BLADDER (KUB) INDICATIONS: Left flank pain, hx stones TECHNIQUE: Axial sections were acquired from the lung bases to the pubic symphysis. Coronal and sagittal reformats were performed. For radiation dose reduction, the following was used: automated exposure control, adjustment of mA and/or kV according to patient size. COMPARISON: None. FINDINGS: Image quality: Excellent. Lung bases: Unremarkable. Heart: Sternotomy wires and mediastinal clips are present. Coronary artery calcifications are noted. URINARY: Kidneys and ureters: Multiple due 3 mm nonobstructing calculi are seen in the left kidney. A 5 mm calculus is seen in the distal left ureter (500 Hounsfield units) with mild left hydroureter and mild hydronephrosis. No significant right hydronephrosis or ureteral calculus. No solid renal mass. Bladder: Normal wall thickness. No stones. ABDOMEN: Liver: Subcentimeter hypoattenuating lesion at the inferior right hepatic lobe is too small to characterize, but is most likely a cyst or hemangioma.. Gallbladder: Unremarkable. Biliary ducts: Unremarkable. Pancreas: Unremarkable. Spleen: Spleen is surgically absent. Surgical clips are seen in the left upper quadrant.. Adrenal Glands: Unremarkable. Stomach and Bowel: Multiple diverticula are seen in the colon without signs of acute diverticulitis. Prominent stool is seen in the cecum. Normal appendix. No signs of bowel obstruction. Peritoneum: No abnormal intraperitoneal fluid. No free air. Ventral Wall: No hernia. Abdominal Nodes: No enlarged retroperitoneal or mesenteric lymph nodes. Vessels: Aorta and inferior vena cava are normal in size. Mild to moderate aortic atherosclerotic calcifications. PELVIS: Pelvic Organs: Unremarkable. Pelvic Nodes: Unremarkable. Miscellaneous: No inguinal hernias are seen. Bones: Mild degenerative changes in the lumbar spine. IMPRESSION: 1. Left distal ureteral 5 mm calculus just proximal to the ureterovesicular junction. Mild left hydroureteronephrosis. 2. Multiple additional nonobstructing left renal calculi. 3. Colonic diverticulosis without signs of acute diverticulitis. Approved by: Brian Chowdhury M.D. on 10/03/2022 at 8:15
[2022-10-03 07:19] LABS: BUN Creatinine Ratio 23.9 (6-22); Blood Urea Nitrogen 16 mg/dL (7-17); Calcium 8.8 mg/dL (8.4-10.2); Carbon Dioxide 23 mmol/L (22-32); Chloride 106 mmol/L (98-107); Estimated Glomerular Filt Rate > 60 mL/min (>60); Glucose 107 mg/dL (70-100); HEMOLYSIS 72 (0-50); Potassium 3.8 mmol/L (3.4-5.1); Sodium 138 mmol/L (137-145)
[2022-10-03] MEDS: KETOROLAC 30 MG/ML VIAL 15 MG IV (07:19)
[2022-10-03 08:45] VITALS: BP 129/69; PULSE 65; O2SAT 94
== END 2022-10-03 08:52 | disposition home or self-care (01) ==
PROVIDERS: Emergency Medicine; Emergency Provider Emergency Medicine; Family Provider Family Medicine; PCP Family Medicine
DX: N23 Unspecified renal colic (principal)
CPT/HCPCS: 36415; 74176; 80048; 81003; 85025; 96361; 96374; 99284; J1885

== ENCOUNTER → 2023-03-12 10:14 | Outpatient (CLI) | payer OTHER, SELFPAY ==
--- NOTE | 2023-03-12 | DI.US.S_ITS ---
PROCEDURE: US CAROTID DOPPLER BI INDICATIONS: CAROTID STENOSIS TECHNIQUE: Color and pulse Doppler interrogation was performed of both carotid systems, with image documentation and velocity measurements. COMPARISON: [facility], , US CAROTID DOPPLER BI, 08/11/2021, 11:01. FINDINGS: Stenosis calculations are based on SRU (Society of Radiologists in Ultrasound) criteria. Right side: Brachial blood pressure: 120/71 mm Hg. Common carotid artery peak systolic velocity: 59 cm/sec. Internal carotid artery peak systolic velocity: 74 cm/sec. Internal carotid artery end diastolic velocity: 29 cm/sec. External carotid artery peak systolic velocity: 101 cm/sec. ICA/CCA peak systolic ratio: 1.3 . Nguyen scale imaging description: Atheromatous plaque is present at the carotid bifurcation. Percent internal carotid artery stenosis: Less than 50% stenosis. Vertebral artery: Flow direction is antegrade. Left side: Brachial blood pressure: 114/73 mm Hg. Common carotid artery peak systolic velocity: 69 cm/sec. Internal carotid artery peak systolic velocity: 198 cm/sec. Internal carotid artery end diastolic velocity: 56 cm/sec. External carotid artery peak systolic velocity: 368 cm/sec. ICA/CCA peak systolic ratio: 2.9 . Nguyen scale imaging description: Atheromatous plaque and calcification is present at the carotid bifurcation. Percent internal carotid artery stenosis: 50-69% stenosis. Vertebral artery: Flow direction is antegrade. IMPRESSION: 1. Less than 50% stenosis of the right internal carotid artery. 2. 50-69% stenosis of the left internal carotid artery. 3. Markedly elevated velocities within the left external carotid artery suggesting hemodynamically significant stenosis. Dictated by: Jordyn Cyr M.D. on 03/12/2023 at 13:32 Approved by: Jordyn Cyr M.D. on 03/12/2023 at 13:33
[2023-03-12 12:56] LABS: Alanine Aminotransferase 24 IU/L (<35); Albumin 4.2 g/dL (3.5-5.0); Albumin Globulin Ratio 1.5 (1.0-2.8); Alkaline Phosphatase 71 U/L (38-126); Aspartate Aminotransferase 27 IU/L (14-36); BUN Creatinine Ratio 19.7 (6-22); Bilirubin Total 0.7 mg/dL (0.2-1.3); Blood Urea Nitrogen 15 mg/dL (7-17); Carbon Dioxide 27 mmol/L (22-32); Chloride 104 mmol/L (98-107); Estimated Glomerular Filt Rate > 60 mL/min (>60); Globulin 2.8 g/dL (1.7-4.1); Glucose 91 mg/dL (70-100); HEMOLYSIS < 15 (0-50); Magnesium 2.3 mg/dL (1.6-2.3); Potassium 4.6 mmol/L (3.4-5.1); Sodium 138 mmol/L (137-145)
[2023-03-15 03:33] LABS: Cholesterol, Total 180 mg/dL (100-199); HDL-Cholesterol 63 mg/dL (>39); HDL-Particle (Total) 39.6 umol/L (>=30.5); Historical Reading Comment: (.); LDL Particle 1315 nmol/L (<1000); LDL-Cholsterol 103 mg/dL (0-99); LP-IR Score 39 (<=45); Small LDL- Particle 621 nmol/L (<=527); Triglycerides 73 mg/dL (0-149)
== END ==
PROVIDERS: Family Provider Family Medicine; PCP Family Medicine; Referring Provider Specialist; Visit Provider Specialist
DX: I65.23 Occlusion and stenosis of bilateral carotid arteries (principal); R00.2 Palpitations; I49.3 Ventricular premature depolarization; E78.2 Mixed hyperlipidemia
CPT/HCPCS: 36415; 80053; 80061; 83704; 83735; 93880

== ENCOUNTER → 2023-11-12 07:37 | Outpatient (CLI) | payer OTHER, SELFPAY ==
[2023-11-12 09:15] LABS: Alanine Aminotransferase 25 IU/L (<35); Albumin 4.1 g/dL (3.5-5.0); Albumin Globulin Ratio 1.7 (1.0-2.8); Alkaline Phosphatase 77 U/L (38-126); Aspartate Aminotransferase 29 IU/L (14-36); BUN Creatinine Ratio 18.4 (6-22); Bilirubin Total 0.8 mg/dL (0.2-1.3); Blood Urea Nitrogen 14 mg/dL (7-17); Calcium 9.1 mg/dL (8.4-10.2); Carbon Dioxide 23 mmol/L (22-32); Chloride 108 mmol/L (98-107); Estimated Glomerular Filt Rate > 60 mL/min (>60); Globulin 2.4 g/dL (1.7-4.1); Glucose 91 mg/dL (80-110); HEMOLYSIS < 15 (0-50); Magnesium 2.2 mg/dL (1.6-2.3); Potassium 4.2 mmol/L (3.4-5.1); Sodium 138 mmol/L (137-145); Total Protein 6.5 g/dL (6.3-8.2)
[2023-11-12 09:42] LABS: Thyroid Stimulating Hormone 2.47 uIU/mL (0.47-4.68)
== END ==
PROVIDERS: Family Provider Family Medicine; PCP Family Medicine; Referring Provider Specialist; Visit Provider Specialist
DX: E78.2 Mixed hyperlipidemia (principal); I49.3 Ventricular premature depolarization; R00.2 Palpitations
CPT/HCPCS: 36415; 80053; 80061; 83704; 83735; 84443

== ENCOUNTER → 2024-08-11 08:18 | Outpatient (CLI) | payer OTHER, SELFPAY ==
--- NOTE | 2024-08-11 08:20 | DI.MRI.S_ITS ---
PROCEDURE: MR KNEE LT WO CON INDICATIONS: knee pain TECHNIQUE: Noncontrast sagittal PD fast spin echo and T2 fast spin echo with fat saturation, sagittal 3-D FLASH with fat saturation; coronal T1 spin echo and PD fast spin echo with fat saturation, and axial PD fast spin echo with fat saturation through the knee. COMPARISON: None. FINDINGS: Image quality: Excellent. Menisci: In the medial meniscus, there is full-thickness radial tear of the posterior root. Mild extrusion of the medial meniscus body. There is additional horizontal oblique tear of the meniscus body. In the lateral meniscus, the posterior root is not definitely visualized. Underlying tear cannot be excluded. No extrusion of the lateral meniscus body. Cruciate ligaments: Full-thickness tear of the ACL. The PCL is intact. Medial structures: The medial collateral ligament appears intact. The posterior oblique ligament, semimembranosus tendon insertions, oblique popliteal ligament, and meniscocapsular junction appear intact. Visualized portions of the pes anserinus tendons appear normal. No abnormal bursal fluid. Lateral structures: The lateral collateral ligament, long and short heads of the biceps femoris tendon appear intact. The popliteus tendon appears normal; the popliteofibular ligament appears intact. The posterosuperior and anteroinferior popliteomeniscal fascicles appear intact. The arcuate and fabellofibular ligaments appear intact, on either side of the lateral inferior geniculate artery. Iliotibial band appears normal. Anterior structures: The quadriceps and patellar tendons appear intact. Mild lateral tilt of the patella. The medial and lateral patellofemoral ligaments are intact. No edema in the infrapatellar fat pad. Bones and cartilage: There is high-grade chondral fissuring in the median ridge, with minimal subchondral marrow edema. High-grade chondral thinning in the lateral patellar facet, with mild subchondral marrow edema. Mild subchondral marrow edema in the medial trochlea, degenerative. In the medial compartment, there is large area of high-grade chondral thinning in the posterior weight-bearing portion of the medial femoral condyle. The cartilage of the lateral compartment is well maintained. There is mild marrow contusion of the posterior medial and lateral tibial plateau. Joint space: Large knee effusion with synovitis. Large, partially ruptured complex popliteal cyst. Popliteal vasculature is unremarkable. 6 mm loose body in the popliteal cyst (12:24). IMPRESSION: 1. Full-thickness radial tear of the posterior root of the medial meniscus. 2. Posterior root of the lateral meniscus is not definitely visualized. Underlying tear cannot be excluded. 3. Full-thickness tear of the ACL. 4. [id number]-sqxlifca, medial compartment predominant chondrosis. 5. Mild marrow contusion of the posterior medial and lateral tibial plateau. 6. Large knee effusion. Large, partially ruptured complex popliteal cyst with 6 mm loose body. Dictated by: Chen Lopez M.D. on 08/11/2024 at 10:54 Approved by: Chen Lopez M.D. on 08/11/2024 at 11:06
== END ==
LOC: MRI 08:19
PROVIDERS: Family Provider Family Medicine; PCP Family Medicine; Referring Provider Family Medicine; Visit Provider Family Medicine
DX: S83.242A Other tear of medial meniscus, current injury, left knee, initial encounter (principal); S83.512A Sprain of anterior cruciate ligament of left knee, initial encounter; S80.912A Unspecified superficial injury of left knee, initial encounter; S80.02XA Contusion of left knee, initial encounter; M94.262 Chondromalacia, left knee; M25.462 Effusion, left knee; M66.0 Rupture of popliteal cyst; X58.XXXA Exposure to other specified factors, initial encounter
CPT/HCPCS: 73721

== ENCOUNTER → 2024-08-11 08:21 | Outpatient (CLI) | payer OTHER, SELFPAY ==
--- NOTE | 2024-08-11 11:24 | DI.US.S_ITS ---
PROCEDURE: US CAROTID DOPPLER BI INDICATIONS: BILAT CAROTID ARTERY STENOSIS TECHNIQUE: Color and pulse Doppler interrogation was performed of both carotid systems, with image documentation and velocity measurements. COMPARISON: [facility], , US CAROTID DOPPLER BI, 03/12/2023, 10:30. FINDINGS: Stenosis calculations are based on SRU (Society of Radiologists in Ultrasound) criteria. Right side: Brachial blood pressure: 107/64 mm Hg. Common carotid artery peak systolic velocity: 72 cm/sec. Internal carotid artery peak systolic velocity: 146 cm/sec. Internal carotid artery end diastolic velocity: 50 cm/sec. External carotid artery peak systolic velocity: 143 cm/sec. ICA/CCA peak systolic ratio: 2.0 . Nguyen scale imaging description: [id number] atherosclerotic plaques Percent internal carotid artery stenosis: 50-69% . Vertebral artery: Flow direction is antegrade. Left side: Brachial blood pressure: 110/70 mm Hg. Common carotid artery peak systolic velocity: 83 cm/sec. Internal carotid artery peak systolic velocity: 210 cm/sec. Internal carotid artery end diastolic velocity: 62 cm/sec. External carotid artery peak systolic velocity: 377 cm/sec. ICA/CCA peak systolic ratio: 2.5 . Nguyen scale imaging description: Moderate atherosclerotic plaques Percent internal carotid artery stenosis: 50-69% . Vertebral artery: Flow direction is antegrade. IMPRESSION: 1. In the right carotid artery, there is 50-69% stenosis based on peak systolic velocity criteria, this is increased compared to prior. 2. In the left carotid artery, there is 50-69% stenosis based on peak systolic velocity criteria, this is similar compared to prior. 3. Antegrade vertebral arteries. 4. Increased velocity within the left ECA suggestive of hemodynamically significant stenosis. Dictated by: Daron Gracia M.D. on 08/11/2024 at 14:05 Approved by: Daron Gracia M.D. on 08/11/2024 at 14:07
--- NOTE | 2024-08-11 11:24 | DI.ECHO.S_ITS ---
[place] +---------+ [facility] : : [address] : : [place] : : [id number] : : Phone: [phone] Echocardiogram Report + + :Name: NICK KAUR Study Date: 08/11/2024 Height: 65 in : :[facility] ReadingLocation: Weight: 185 lb : : Gender: Female BSA: 1.9 m2 : :: 1965 Age: 59 yrs BP: 107/64 mmHg: :Reason For Study: HEART MURMUR : :Ordering Physician: TY, : :RUBY Performed By: Brook John : :Referring: RUBY CRAWFORD : + + Interpretation Summary Left ventricular systolic function appears well-preserved with an estimated ejection fraction of 55 to 60% with a small area of hypokinesis in the mid inferolateral segment that is likely unchanged from the previous exam although was not well imaged previously. Left ventricular size appears normal with borderline increased wall thickness. Diastolic function is likely normal with probable normal filling pressures. Overall, there has been no significant change since the previous exam. The right ventricle is not well-seen but appears borderline enlarged with mild hypokinesis but grossly appears unchanged from the previous study. Right ventricular systolic pressure cannot be estimated but CVP is likely 3 mmHg. Both atria are normal in size and measure considerably smaller compared to the previous study. There is mild aortic stenosis with a peak velocity of 2.4 m/s and a mean gradient of 11 mmHg, compared to 1.8 m/s and 6 mmHg, respectively, on the previous exam. There is no other significant functional valvular abnormality. Significant atherosclerotic plaque is noted in the aortic root and proximal ascending aorta. The aortic arch is at the upper limits of normal in size. Heart rates were generally in the 50 to 60 bpm range, slightly faster compared to the previous exam. Procedure: A two-dimensional transthoracic echocardiogram with color flow and Doppler was performed. The study quality was technically adequate. Comparison is made with the echocardiogram of 02/03/2019. The patient was in sinus bradycardia with heart rates between 47-61 bpm during the exam. Left Ventricle: The left ventricle is normal in size. The estimated left ventricular end diastolic volume is 87 ml. Left ventricular wall thickness is at the upper limits of normal. Overall left ventricular systolic function is preserved. The ejection fraction is estimated to be 55-60%. There is a relatively small area of hypokinesis in the mid inferolateral segment that is likely unchanged from the previous study although was not well imaged previously. There has been no significant change since the previous exam. Diastolic parameters suggest probable normal left ventricular diastolic function and normal filling pressures. Right Ventricle: The right ventricle is not well visualized. The right ventricle is borderline dilated. Right ventricular systolic function is mildly reduced. This is unchanged compared to the previous study. Atria: Both atria are normal in size. Both atria have mildly decreased in size since the prior echo exam. There is no Doppler evidence for an interatrial shunt. Mitral Valve: There is a flat closure plane of the the mitral valve leaflets. The mitral valve leaflets appear mildly thickened, but open well. There is trace mitral regurgitation. This is unchanged compared to the previous study. Aortic Valve: The aortic valve is trileaflet. The aortic valve is mildly calcified. There is mildly reduced leaflet mobility. There is mild aortic stenosis. This is slightly progressive compared to the previous study. The peak aortic velocity is 2.4 m/sec. The aortic valve mean gradient is 11 mmHg compared to the previous 6 mmHg. The calculated aortic valve area is 1.5 cm2. The peak aortic velocity on the previous exam was 1.8 m/sec. This severity ratio has increased from 0.53 up to 0.64. There is trace aortic regurgitation. This is unchanged compared to the previous study. Tricuspid Valve: The tricuspid valve leaflets are thin and pliable. There is trace tricuspid regurgitation. Pulmonary artery pressures cannot be estimated because of the lack of a measurable TR jet velocity but the IVC suggests a CVP of around 3 mmHg. Pulmonic Valve: The pulmonic valve leaflets are thin and pliable; valve motion is normal. There is no pulmonic valvular regurgitation. Great Vessels: The aortic root is normal size. Moderate atherosclerotic plaque(s) in the ascending aorta. The dimensions of the ascending aorta are normal. The aortic arch is at the upper limits of normal in size. The IVC is of normal diameter and collapses greater than 50% with a sniff. This suggests a low right atrial pressure of 3 mm Hg. Pericardium/ Pleura There is a trivial pericardial effusion noted. There is no pleural effusion. MMode/2D Measurements & Calculations LVIDd: 4.5 cm LVOT diam: 2.0 cm LVIDs: 2.8 cm Ao root diam: 3.2 cm FS: 36.7 % asc Aorta Diam: 2.8 cm IVSd: 0.97 cm Ao Arch Diam (Prox Trans): 3.0 cm LVPWd: 0.78 cm LV song. diameter/BSA (cm/m^2): 2.3 LV sys. diameter/BSA (cm/m^2): 1.5 LA A2 area: 15.9 cm2 RA long axis: 5.0 cm LA A4 area: 15.6 cm2 RA area: 17.1 cm2 LA length (vol): 4.6 cm RA vol: 49.4 ml LA vol: 45.5 ml RA : 25.8 ml/m2 LA vol index: 23.8 ml/m2 IVC diam: 0.91 cm RVD1 (basal): 3.8 cm RVD2 (mid): 3.1 cm TAPSE: 1.2 cm Doppler Measurements & Calculations Ao V2 max: 239.1 cm/sec LVOT Max Neto: 119.6 cm/sec Ao V2 mean: 142.5 cm/sec LV V1 max P.7 mmHg Ao max P.1 mmHg LV V1 VTI: 28.6 cm Ao mean P.1 mmHg ISABEL(I,D): 1.9 cm2 Ao V2 VTI: 44.9 cm ISABEL(V,D): 1.5 cm2 sev ratio: 0.64 ISABEL indexed to BSA (cm^2/m^2): 1.0 MV E max neto: 89.4 cm/sec PA V2 max: 118.4 cm/sec MV A max neto: 45.1 cm/sec PA V2 mean: 70.6 cm/sec MV E/A: 2.0 PA mean P.5 mmHg Med Peak E' Neto: 8.1 cm/sec PA pr(Accel): 27.6 mmHg E/E' med: 11.1 Lat Peak E' Neto: 10.5 cm/sec E/E' lat: 8.5 E/e' average: 9.8 MV dec time: 0.19 sec SV(LVOT): 86.9 ml Reading Physician:[id number] PM
== END ==
PROVIDERS: Family Provider Family Medicine; PCP Family Medicine; Referring Provider Specialist; Visit Provider Specialist
DX: I65.23 Occlusion and stenosis of bilateral carotid arteries (principal); I35.0 Nonrheumatic aortic (valve) stenosis; R01.1 Cardiac murmur, unspecified; I70.0 Atherosclerosis of aorta; S83.242A Other tear of medial meniscus, current injury, left knee, initial encounter; S83.512A Sprain of anterior cruciate ligament of left knee, initial encounter; S80.912A Unspecified superficial injury of left knee, initial encounter; S80.02XA Contusion of left knee, initial encounter; M94.262 Chondromalacia, left knee; M25.462 Effusion, left knee; M66.0 Rupture of popliteal cyst; X58.XXXA Exposure to other specified factors, initial encounter
CPT/HCPCS: 73721; 93306; 93880

== ENCOUNTER → 2024-08-14 12:10 | Outpatient (CLI) | payer OTHER, SELFPAY ==
[2024-08-14 14:57] LABS: Alanine Aminotransferase 25 IU/L (<35); Albumin 4.2 g/dL (3.5-5.0); Albumin Globulin Ratio 1.8 (1.0-2.8); Alkaline Phosphatase 64 U/L (38-126); Aspartate Aminotransferase 33 IU/L (14-36); BUN Creatinine Ratio 24.3 (6-22); Blood Urea Nitrogen 18 mg/dL (7-17); Calcium 9.2 mg/dL (8.4-10.2); Carbon Dioxide 25 mmol/L (22-32); Chloride 105 mmol/L (98-107); Estimated Glomerular Filt Rate > 60 mL/min (>60); Globulin 2.4 g/dL (1.7-4.1); Glucose 77 mg/dL (70-99); HEMOLYSIS < 15 (0-50); Magnesium 2.1 mg/dL (1.6-2.3); Potassium 4.1 mmol/L (3.4-5.1); Sodium 138 mmol/L (137-145); Total Protein 6.6 g/dL (6.3-8.2)
== END ==
PROVIDERS: Family Provider Family Medicine; PCP Family Medicine; Referring Provider Specialist; Visit Provider Specialist
DX: I49.3 Ventricular premature depolarization (principal); E78.2 Mixed hyperlipidemia
CPT/HCPCS: 36415; 80053; 80061; 83704; 83735